=== PATIENT | female | born 1955 ===

== ENCOUNTER → 2016-07-16 | Outpatient (CLI) | payer OTHER ==
--- NOTE | 2016-07-16 12:48 | DX ---
Left rib series 5 views dated July 16, 2016 Indication: Low left rib pain. Technique: PA chest and 4 oblique views of the left hemithorax. A BB was placed over the site of pain . Findings: The BB is present along the low left chest wall inferior to the lowest rib. No acute rib fr acture or bone lesion. The lungs are well aerated and clear. No pneumothorax, consolidation or effusi on. Minimal linear atelectasis is present at the left base. Heart size is normal. The thoracolumbar s pine has moderate biphasic curvature with a dominant levocurvature apex at L2-L3. Impression: Negative. No acute rib fracture or bone lesion.
== END ==
LOC: CIMAGING 11:12
PROVIDERS: ATTEND Physical Medicine & Rehabilitation
DX: R07.81 Pleurodynia (principal)
CPT/HCPCS: 71101-PO